=== PATIENT | female | born 1990 | race Caucasian/White ===

== ENCOUNTER 2020-01-09 16:10 | Emergency (ER) | payer SELFPAY ==
[~2020-01-09] VITALS: Ht 162.6 cm; Wt 65.5 kg
[2020-01-09 16:44] VITALS: Ht 162.6 cm; Wt 65.5 kg
[2020-01-09] MEDS ORDERED: SEROQUEL100 MG PO (16:46)
[2020-01-09] MEDS ORDERED: CELEXA40 MG PO (16:46)
[2020-01-09] MEDS ORDERED: XANAX0.5 MG PO (16:46)
[2020-01-09] MEDS ORDERED: BACTRIM DS TAB1 EAC1 PO (20:22)
[2020-01-09] MEDS ORDERED: HYDROCODON-ACE1 EAC7 PO (20:22)
[2020-01-09 21:05] VITALS: BP 132/78
== END 2020-01-09 21:06 | disposition home or self-care (01) ==
LOC: D.ER 16:10
DX: N39.0 Urinary tract infection, site not specified (principal); R10.31 Right lower quadrant pain; N83.201 Unspecified ovarian cyst, right side